=== PATIENT | female | born 1965 | race Two or more races ===

== ENCOUNTER 2024-10-10 07:25 | Emergency (ER) | payer MEDICAID, SELFPAY ==
[2024-10-10 07:26] VITALS: BP 111/68; PULSE 75; RESP 16; TEMP 36.4; O2SAT 100
[2024-10-10 07:28] VITALS: PULSE 91; RESP 20; O2SAT 97; BMI 19.7
--- NOTE | 2024-10-10 07:37 | PC.NURSE ---
PT ARRIVES VIA EMS FROM HOME, WAS HELPED OUT OF THE SHOWER BY SON, WHEN THEY WERE WALKING SHE HAD WHAT APPEARED TO BE A FOCAL SEIZURE THAT LASTED 1-2 MINUTES. OPT DOES NOT HAVE A KNOWN HISTORY OF SEIZURES, HOWEVER PER EMS DOES HAVE DEMENTIA. PT UNABLE TO ANSWER QUESTIONS APPROPRIATELY AT THIS TIME.
--- NOTE | 2024-10-10 07:46 | EDNOTE_ITS ---
ED Seizures RME/HPI General Chief Complaint: Seizure Stated Complaint: SEIZURE Time Seen by Provider: 10/10/24 07:46 Arrival date/time: 10/10/24 07:25 RME / HPI RME / HPI Narrative: Chief complaint: Seizure HPI: Patient is a 58-year-old female with past medical history of rapidly progressive frontal lobe dementia, short-term memory loss, who was brought into the ED by her son after an episode of seizure-like activity this morning. Patient is a poor historian, most of the history was obtained from the son present at bedside. Patient was in the shower when the son heard a loud thud, on checking patient had a ground-level fall and her jaw was moving left to right, eyes were rolled back and partially closed, and she was shaking . Patient looked a little more confused after the episode, out of her baseline. Her dementia was diagnosed at the age of 51, and progressively worsened. She denied any pain, or other systemic symptoms. Per son, she was not exposed to any infections recently, has no history of hospitalization, denies fevers, however she has been put on medications to keep her calm, as she tends to get aggressive given the frontal lobe dementia. In the ED, vitals showed blood pressure 111/68, heart rate 40-60 bpm, normal temp and 100% sats on room air. Patient appeared confused AO x 1 at best, she had a 2 cm superficial occipital laceration, with some bleeding, however did not complain of any discomfort or pain. Medication list: Son cannot recall the names Pending med rec Allergies: No known food or drug allergy Social history: Tobacco?Use:?Hx of 10 pack years of tobacco smoking, quit >20 years ago ETOH?Use:?Denies Drug?Note:?Denies Social?History?Note:?Lives?at home with family Family history: Son denies any family history of cancers, sudden cardiac . Positive for stroke in both mother and father. MD complaint: possible seizure and syncope Onset (ago): hour(s) Description of Episode: loss of consciousness and post-event confusion Seizure History: none Related Data Previous Rx's ?Medication ?Instructions ?Recorded celecoxib 100 mg capsule 100 mg PO BID PRN pain #10 caps 10/10/24 mupirocin 2 % topical ointment 1 applic topical TID #15 grams 10/10/24 Allergies Allergy/AdvReac Type Severity Reaction Status Date / Time No Known Allergies Allergy Verified 10/10/24 07:36 Review of Systems Review of Systems ROS Unobtainable: unobtainable due to mental status ED Exam Narrative Physical exam: Constitutional Alert, oriented x1 and comfortable HEENT Vision grossly intact. Patent nares. Trachea midline. Respiratory Chest normal on inspection and clear to auscultation bilaterally. Cardiovascular S1 and S2 audible, RRR. No murmurs or carotid bruit. No gross JVD. Abdominal Soft and non tender to palpation in all quadrants. BS + Genitourinary No bladder tenderness, no flank pain. Normal to palpation. Musculoskeletal Extremities tone within normal limits. No LE edema. Neurological CN II - XII grossly intact. Extremity motor and sensation grossly intact. Skin Warm, dry and intact. Scalp laceration 2cm, superficial. sanguinous discharge. Psychiatric Patient has a good affect, is cooperative. Course Quality Measures none Orders Category Date Time Status EKG (ED ONLY) *Do not use* NOW Care 10/10/24 07:58 Completed Insert IV NOW Care 10/10/24 07:56 Completed Straight [In and Out Catheter] X1 Care 10/10/24 07:59 Completed Wound Care [Wound Care] NOW Care 10/10/24 08:[address] cervical spine wo con Stat Exams 10/10/24 08:[address] head/brain wo con Stat Exams 10/10/24 07:54 Completed CXRP [XR chest 1V portable] Stat Exams 10/10/24 07:57 Completed EKG (ED Only) Stat Exams 10/10/24 07:58 Draft CBC Stat Lab 10/10/24 08:38 Completed CMP [Comprehensive Metabolic Panel] Stat Lab 10/10/24 08:38 Completed ESR [Sed Rate (ESR)] Stat Lab 10/10/24 08:38 Completed Free T4 (Free Thyroxine) Stat Lab 10/10/24 08:38 Completed Lactate (Lactic Acid) Stat Lab 10/10/24 08:38 Completed Magnesium Stat Lab 10/10/24 08:38 Completed PTT [Partial Thromboplastin Time] Stat Lab 10/10/24 10:21 Completed Procalcitonin Stat Lab 10/10/24 08:38 Completed Prothrombin Time with INR Stat Lab 10/10/24 10:21 Completed Thyroid Stimulating Hormone Stat Lab 10/10/24 08:38 Completed Troponin I Stat Lab 10/10/24 08:38 Completed Urinalysis Stat Lab 10/10/24 08:47 Completed Ampicillin/Sulbac Inj [Unasyn Inj] 1.5 gm Med 10/10/24 08:04 Discontinued Sodium Chloride 0.9% (P) [Ns 0.9% (P)] 50 ml IV X1 Bacitracin Oint pkt Med 10/10/24 08:04 Discontinued 1 gm TOP X1 ONE Lidocaine 1% 20 ml [Xylocaine 1% 20 ML] Med 10/10/24 08:04 Discontinued 20 ml INFL X1 ONE Potassium Chloride [K-Dur] Med 10/10/24 11:06 Discontinued 40 meq PO X1 ONE Ringers Lactated 1000 ml [Lactated Ringers] 1,000 ml Med 10/10/24 08:06 Discontinued IV 150 mls/hr Ringers Lactated 500 ml [Lactated Ringers] 1,000 ml Med 10/10/24 08:05 Discontinued IV 150 mls/hr Ringers Lactated 500 ml [Lactated Ringers] 500 ml Med 10/10/24 07:57 Discontinued IV 150 mls/hr Tet,Diphth,Pertuss(Acell)-Tdap [Boostrix Vacc] Med 10/10/24 08:04 Discontinued 0.5 ml IMI .ONCE ONE Vital Signs Vital signs: Vital Signs Temperature 97.6 F 10/10/24 07:26 Pulse Rate 75 10/10/24 07:26 Respiratory Rate 16 10/10/24 07:26 Blood Pressure 111/68 10/10/24 07:26 Pulse Oximetry (%) 100 10/10/24 07:26 Oxygen Delivery Method Room Air 10/10/24 07:26 Procedures -ED Laceration Laceration 1: Site: scalp Size (cm): 2 Description: flap and clean Depth: simple, single layer Local Anesthetic: lidocaine 1% Amount of anesthesia used (mL): 5 Pre-repair: irrigated extensively Skin layer closed with: other Number of sutures: 2 Technique: simple, interrupted Seizure MDM Narrative MDM Narrative:: Patient is a 58-year-old female who was brought into the ED by her son for possible seizure. Scalp (occipital) laceration repaired with uzma. Pending further workup for seizure versus syncope. Labs and imaging: CBC, CMP, coag panel, TSH/free T4, urinalysis, head CT without con, cervical CT Patient data External records reviewed:: None Clinical information provided by:: family and senior cytogenetics laboratory director Social determinants that could affect healthcare access:: none Patient has the following chronic illnesses:: advanced frontal lobe dementia How is presenting disease/condition affected by chronic disease/condition?: exacerbated by Evaluation data The following diagnostics were reviewed and interpreted by me:: lab results, radiology exam(s), EKG tracing(s) and other (specify) Lab and/or radiology exams considered but not ordered:: MRIB Interpretation Summary: Likely pre-syncope 2/2 bradycardia in the setting of hypothyroidism Medications / Prescriptions Medications or Prescriptions considered but not ordered:: Levothyroxine Medication administrations:: Medication Administration History Discontinued Medications Bacitracin (Bacitracin Oint 1 Gm Packet) 1 gm TOP X1 ONE Stop: 10/10/24 08:05 Last Admin: 10/10/24 08:21 Dose: 1 gm Documented By: ADRIEL Comments: med not scanning Diphtheria/Tetanus/Acell Pertussis (Diphth,Pertuss(Acell),Tet Vac 0.5 Ml Vial) 0.5 ml IMi .ONCE ONE Stop: 10/10/24 08:05 Last Admin: 10/10/24 08:20 Dose: 0.5 ml Documented By: ADRIEL Lactated Ringer's (Lactated Ringers) 500 mls @ 150 mls/hr IV .Q3H20M ONE Stop: 10/10/24 11:16 Last Admin: 10/10/24 08:05 Dose: Not Given Documented By: ADRIEL Non-Admin Reason: Discontinued Lactated Ringer's (Lactated Ringers) 1,000 mls @ 150 mls/hr IV .Q6H40M ONE Stop: 10/10/24 14:36 Last Admin: 10/10/24 08:07 Dose: Not Given Documented By: ADRIEL Non-Admin Reason: Duplicate Medication on eMAR Ampicillin Sodium/Sulbactam (Sodium 1.5 gm/ Sodium Chloride) 50 mls @ 100 mls/hr IV X1 ONE Stop: 10/10/24 08:05 Last Infusion: 10/10/24 13:50 Dose: Infused Documented By: Admin: 10/10/24 08:21 Dose: 100 mls/hr Documented By: ADRIEL Lactated Ringer's (Lactated Ringers) 1,000 mls @ 150 mls/hr IV .Q6H40M ONE Stop: 10/10/24 14:45 Last Infusion: 10/10/24 13:50 Dose: Infused Documented By: Admin: 10/10/24 08:07 Dose: 150 mls/hr Documented By: ADRIEL Lidocaine HCl (Lidocaine Hcl 1% 20 Ml Vial) 20 ml INFL X1 ONE Stop: 10/10/24 08:05 Last Admin: 10/10/24 08:20 Dose: 20 ml Documented By: ADRIEL Potassium Chloride (Potassium Chloride 20 Meq Tabcr) 40 meq PO X1 ONE Stop: 10/10/24 11:07 Last Admin: 10/10/24 12:25 Dose: 40 meq Documented By: ADRIEL Continue Consultations Consultation(s) initiated? (list below): No Diagnosis Seizure Differential Diagnosis: new onset seizure Most likely diagnosis given after review of the tests above:: Syncope Admission Indicated Admission indicated?: not indicated Admission Request Was there a request for admission?: No Disposition Plan Disposition Plan: Discharge Discharge Attestation Discharge Attestation: The patient and all family members were given an opportunity to ask questions and understood the discharge instructions. Discharge instructions specifically effects, indications for sooner follow up or return to the emergency department, and the expected course of current diagnosis. Patient condition: Stable Discharge Plan Plan Patient Disposition: HOME (Self Care) Patient condition on transfer: Stable Prescriptions/Referrals Prescriptions/Med Rec: New celecoxib 100 mg capsule 100 mg PO BID PRN (Reason: pain) Qty: 10 0RF mupirocin 2 % ointment 1 applic topical TID Qty: 15 0RF Referrals: Ayala Tavares PA-C [Primary Care Provider] - In 1 week Problem List Clinical Impression: Syncope, Hypothyroid Patient/Caregiver Discharge Instructions Other Activity Instructions:: Discharge instructions by Dr Dash: - Patient likely had syncope due to bradycardia, herat rate 40-50bpm. Found to be subclinical hypothyroid, recommend starting Levothyroxine outpatient by private/primary care doctor. - Scalp laceration repaired with 4 uzma. -- Keep the current dressing intact for 24 hours. -- After 24 hours, change the dressing once daily. -- First remove the dressing gently. If it does not come off easily, run water through it until it comes off easily. -- Then gently wash with soap and water. -- After completely drying, apply antibiotic ointment and new dressing. -- See a private doctor return here in 10 days to remove the uzma. - Continue other home medications -See your private doctor on 10/13/2024. Ask to review all test results and official radiology reports, to make sure you receive all necessary follow-ups and monitoring. To make sure there is no serious underlying heart condition, ask to help you get more tests for your heart that cannot be done here in the ER. Such as Holter Monitor (cardiac monitoring at home from a day to even a month), heart stress test (on treadmill or with medication), echocardiogram (imaging of your heart structures), heart catherization (checking for blockages in your heart arteries), and a referral to see a [facility]. - Return to ED if symptoms worsen. Education Materials: Common Thyroid Problems, Diagnosing Syncope Print Language: Albanian Stand Alone Forms: [facility] Award Info., Patient Portal Info Letter
--- NOTE | 2024-10-10 07:54 | XR_ITS ---
Examination: CT brain head without contrast. 2-D sagittal coronal reconstructions Date and time of exam:October 10, 2024 0934 hours INDICATIONS: Patient fell today with injury to the back of the head, head laceration head pain, seizure today CTDI: vol (mGy):49.4 DLP: (mGycm):1062 Technique: Multiple CT axial sections of the brain have been obtained, 5 mm slice thickness. Contrast has not been administered. 2-D sagittal, coronal reconstructions have been obtained Low dose protocols were performed. One or more of the following dose reduction techniques were used; automated exposure control, adjustment of the mA and/or KV according to patient size, use of iterative reconstruction technique. Findings: No significant ventricular enlargement. Intra-axial or extra-axial hemorrhage density is not seen. No mass effect or midline shift Basal cisterns are not remarkable. Fourth ventricle is midline. Cranial vault intact. Generalized atrophy especially frontal lobes Impression: Negative for acute hemorrhage, mass effect or midline shift
--- NOTE | 2024-10-10 07:57 | XR_ITS ---
Examination: AP chest single view TECHNIQUE: Portable sitting AP chest single view Exam date and time: October 10, 2024 0821 hours Comparison September 03, 2008 INDICATIONS: Focal seizure today lasting 2 minutes. FINDINGS: Normal heart size No aspiration pneumonia Moderate osteopenia IMPRESSION: No aspiration pneumonia
--- NOTE | 2024-10-10 07:58 | EKG_ITS ---
[facility] Test Date: 2024-10-10 Pat Name: ABDON BENITES Department: Room: - Gender: Female Lead Android Developer: : 1965 Requested By: Brett Dash Order Number: [id number] Reading MD: Brett Dash Measurements Intervals [place] Rate: 50 P: 38 [place]: 166 QRS: 31 QRSD: 92 T: 127 QT: 437 QTc: 402 Interpretive Statements SINUS BRADYCARDIA MINIMAL ST DEPRESSION [0.025+ mV ST DEPRESSION] ABNORMAL QRS-T ANGLE [QRS-T AXIS DIFFERENCE > 60] Compared to ECG 05/25/2022 12:46:39 ST (T wave) deviation now present Sinus rhythm no longer present Myocardial infarct finding no longer present /store/S0/[id number].pdf
--- NOTE | 2024-10-10 08:05 | XR_ITS ---
Examination: CT cervical spine without contrast 2-D sagittal reconstructions 2-D coronal reconstructions 3-D reconstructions. Exam date and time:October 10, 2024 0934 hours Comparison 06/25/2022 INDICATIONS: Injury to the neck today after following, neck pain CTDI:vol (mGy) 7.35 DLP: (mGycm) 166 Technique: Multiple 2 mm axial sections of the cervical spine have been obtained. The coronal and sagittal reconstructions have been obtained. 3-D reconstructions have been obtained. Low dose protocols were performed. One or more of the following dose reduction techniques were used; automated exposure control, adjustment of the mA and/or KV according to patient size, use of iterative reconstruction technique. Findings: Axial sections demonstrate intact base of the skull. C1 exhibit satisfactory relationship to the odontoid. No acute cervical vertebral body fracture seen. Alignment posterior spinous processes satisfactory. Impression: No acute cervical fracture.
[2024-10-10] MEDS: RINGERS LACTATED 1000 ML 1,000 ML 150 ML IV (08:07)
[2024-10-10] MEDS: LIDOCAINE HCL 1% 20 ML VIAL INFL (08:20)
[2024-10-10] MEDS: DIPHTH,PERTUSS(ACELL),TET VAC 0.5 ML VIAL IMi (08:20)
[2024-10-10] MEDS: AMPICILLIN/SULBAC INJ 1.5 GM in SODIUM CHLORIDE 0.9% (P) 50 ML IV (08:21)
[2024-10-10] MEDS: BACITRACIN OINT 1 GM PACKET TOP (08:21)
[2024-10-10 08:53] LABS: Collection Type, Urine Catheter; Squamous Epithelial Cell,Urine 0 /hpf (0-5)
[2024-10-10 08:54] LABS: Lactate (Lactic Acid) 1.2 mMol/L (0.4-2.0)
[2024-10-10 09:01] LABS: Bilirubin,Urine Negative (Negative); Blood,Urine Negative (Negative); Clarity,Urine Clear (Clear/Hazy); Color,Urine Yellow (Lt Yel-Yel); Glucose, Urine Negative (Negative); Ketones,Urine Negative (Negative); Leukocyte Esterase,Urine Negative (Negative); Nitrite,Urine Negative (Negative); PH,Urine 6.5 (5.0-7.0); Protein,Urine Trace (Neg - Trace); RBC,Urine 1 /hpf (0-3); Specific Gravity,Urine 1.018 (1.001-1.035); WBC,Urine 1 /hpf (0-5)
[2024-10-10 09:22] LABS: Basophils # (Auto) 0.1 Thou/mm3 (0.0-0.2); Basophils % (Auto) 1 % (0-2.5); Eosinophils # (Auto) 0.1 Thou/mm3 (0.0-0.5); Eosinophils % (Auto) 1 % (0-10); Hematocrit 40.1 % (36.0-46.0); Hemoglobin 13.8 g/dL (12.0-16.0); Immature Granulocytes % (Auto) 1 % (0-0); Immature Granulocytes Auto 0.04 Thou/mm3 (0.00-0.00); Lymphocytes # (Auto) 1.6 Thou/mm3 (1.0-4.8); Lymphocytes % (Auto) 19 % (10-50); Mean Corpuscular HGB Conc 34.4 g/dl (31.0-37.0); Mean Corpuscular Hemoglobin 30.7 pg (25.0-35.0); Mean Corpuscular Volume 89 fL (80-100); Monocytes # (Auto) 0.4 Thou/mm3 (0.0-0.8); Monocytes % (Auto) 5 % (0-12); Neutrophils # (Auto) 6.3 Thou/mm3 (1.8-7.7); Neutrophils % (Auto) 74 % (37-80); Nucleated Red Blood Cell % 0 /100 WBC (0); Platelet Count 181 Thou/mm3 (140-440); RDW Standard Deviation 40.5 fL (36.4-46.3); Red Blood Count 4.49 Miln/mm3 (4.00-5.20); White Blood Count 8.6 Thou/mm3 (3.6-11.0)
[2024-10-10 09:29] LABS: Alanine Aminotransferase < 7 U/L (10-49); Albumin, Serum 4.3 gm/dL (3.5-5.0); Albumin/Globulin Ratio 1.6 (1.2-2.2); Alkaline Phosphatase 68 U/L (46-116); Anion Gap 6 (7-16); Aspartate Amino Transferase 14 U/L (0-34); BUN/Creatinine Ratio 27 Ratio (12-20); Bilirubin,Total 1.6 mg/dL (0.3-1.2); Blood Urea Nitrogen 19 mg/dL (9-23); Calcium 9.2 mg/dL (8.3-10.6); Calcium (Corrected) 9.2 mg/dL (8.5-10.1); Carbon Dioxide 27.8 mMol/L (20.0-31.0); Chloride 103 mMol/L (98-107); Creatinine (Component) 0.7 mg/dL (0.6-1.3); Free T4 (Free Thyroxine) 1.18 ng/dL (0.89-1.76); Globulin 2.7 gm/dL (2.3-3.5); Glucose 113 mg/dL (74-106); Magnesium 2.2 mg/dL (1.6-2.6); Osmolality,Calculated 277 (275-295); Potassium 3.7 mMol/L (3.4-5.1); Procalcitonin < 0.04 ng/ml (0.0-0.49); Sodium 137 mMol/L (136-145); Thyroid Stimulating Hormone 6.15 uIU/mL (0.55-4.78); Troponin I < 0.002 ng/mL (0.0-0.045); eGFR > 60 See Note
[2024-10-10 10:00] VITALS: BP 130/72; PULSE 54; RESP 16; TEMP 36.6; O2SAT 100
--- NOTE | 2024-10-10 10:07 | ESOP_ITS ---
Procedures Procedure Date / Time 10/10/24 09 : 30 am Procedure Narrative Procedure Narrative: Procedure Name: Laceration Repair Indication: Reduce risk of infection Location: Scalp - occipital Pre-Procedure Diagnosis: Laceration Post-Procedure Diagnosis: Repaired Laceration Informed consent was obtained before procedure started. PROCEDURE NOTE : The appropriate timeout was taken. The area was prepped and draped in the usual sterile fashion. Local anesthesia was achieved using 4cc of ?Lidocaine 1% without epinephrine. The wound was copiously irrigated. [place] were used interrupted sutures were placed. Estimated blood loss was less than 0.5 mL. A dressing was applied to the area and anticipatory guidance.?The patient tolerated the procedure well without complications. - Brett Dash MD (PGY2 IM)
[2024-10-10 10:17] LABS: Sed Rate (ESR) 14 mm/hr (0-30)
[2024-10-10 10:55] LABS: Partial Thromboplastin Time 25.7 Seconds (22.0-36.0); Prothrombin Time 11.4 Seconds (9.0-12.2)
[2024-10-10 12:00] VITALS: BP 99/63; PULSE 60; RESP 15; TEMP 36.7; O2SAT 100
[2024-10-10] MEDS: POTASSIUM CHLORIDE 20 mEq TABCR 40 MEQ PO (12:25)
[2024-10-10 13:50] VITALS: BP 113/65; PULSE 65; RESP 16; TEMP 36.6; O2SAT 100
== END 2024-10-10 13:50 | disposition home or self-care (01) ==
PROVIDERS: Emergency Provider Student in an Organized Health Care Education/Training Program; PCP Physician Assistant
DX: S01.01XA Laceration without foreign body of scalp, initial encounter (principal); S19.9XXA Unspecified injury of neck, initial encounter; E03.9 Hypothyroidism, unspecified; R55 Syncope and collapse; R56.9 Unspecified convulsions; W19.XXXA Unspecified fall, initial encounter; Z23 Encounter for immunization
CPT/HCPCS: 12001; 36415; 70450; 71045; 72125; 80053; 81001; 83605; 83735; 84145; 84439; 84443; 84484; 85025; 85610; 85652; 85730; 90471; 90715; 93005; 96365; 96366; 99284; J0295; J3490; J7050; J7120; A9270